=== PATIENT | female | born 1990 | race Hispanic/Latino ===

== ENCOUNTER 2016-10-23 03:38 | Emergency (ER) | payer OTHER ==
[~2016-10-23] VITALS: Ht 154.9 cm; Wt 68.0 kg
[2016-10-23] MEDS ORDERED: CLIN1CAP5 PO (03:52)
[2016-10-23] MEDS ORDERED: IBUP600T26 PO (03:52)
[2016-10-23] MEDS ORDERED: GI COCKTAIL 50ML BTL(HYOSCYAMINE/MAALOX/LIDOCAINE VISCOUS)(1:3:1) PO ONE (04:15)
[2016-10-23] MEDS ORDERED: PANTOPRAZOLE 40MG INJ (PROTONIX) (C9113) IV ONE (04:15)
[2016-10-23] MEDS ORDERED: ONDANSETRON 4MG/2ML VIAL (J2405) IV ONE (04:15)
[2016-10-23] MEDS ORDERED: NS 500 ML IV ONE (04:15)
[2016-10-23 04:46] LABS: BASO % 0.6 % (0.0-1.0); EOS # 0.2 K/mm3 (0.0-0.50); EOS % 2.5 % (0.0-3.0); LARGE UNSTAINED CELL # 0.1 K/mm3 (0.0-0.4); LARGE UNSTAINED CELL % 0.7 % (0.0-4.0); MEAN CORPUSCULAR HEMOGLOBIN 29.7 pg (27.0-33.0); MEAN CORPUSCULAR HGB CONC 33.2 g/dl (32.0-36.5); MEAN CORPUSCULAR VOLUME 89.5 fl (80.0-96.0); MONO # 0.4 K/mm3 (0.0-0.8); MONO % 4.3 % (0.0-5.0); NEUTROPHILS # 6.9 K/mm3 (1.8-7.7); NEUTROPHILS % 80.9 % (36.0-66.0); PLATELET COUNT, AUTOMATED 244 k/mm3 (150-450); RED CELL DISTRIBUTION WIDTH 12.7 % (11.5-14.5); WHITE BLOOD COUNT 8.6 K/mm3 (4.0-10.0)
[2016-10-23 05:04] LABS: CONTROL LINE HCG INT CTR LINE PRESENT
[2016-10-23 05:12] LABS: ALBUMIN 4.1 GM/DL (3.2-5.2); ALBUMIN/GLOBULIN RATIO 1.37 (1.00-1.93); ALKALINE PHOSPHATASE 52 U/L (45-117); ALT/SGPT 17 U/L (12-78); ANION GAP 10 MEQ/L (8-16); AST/SGOT 12 U/L (15-37); BILIRUBIN,DIRECT 0.2 MG/DL (0.0-0.2); BILIRUBIN,TOTAL 0.9 MG/DL (0.2-1.0); BLOOD UREA NITROGEN 8 MG/DL (7-18); CALCIUM LEVEL 8.8 MG/DL (8.5-10.1); CARBON DIOXIDE LEVEL 23 MEQ/L (21-32); CHLORIDE LEVEL 104 MEQ/L (98-107); CREATININE FOR GFR 0.86 MG/DL (0.55-1.02); GLOMERULAR FILTRATION RATE > 60.0 (>60); GLUCOSE, FASTING 104 MG/DL (70-105); POTASSIUM SERUM 3.7 MEQ/L (3.5-5.1); SODIUM LEVEL 137 MEQ/L (136-145); TOTAL PROTEIN 7.1 GM/DL (6.4-8.2)
[2016-10-23] MEDS ORDERED: FAMO40TA3 PO (05:40)
[2016-10-23 06:14] VITALS: BP 131/74
--- NOTE | 2016-10-23 16:27 | ECGEPIP ---
Stationary ECG Study [facility] - ED Test Date: 2016-10-23 Pat Name: RANDOLPH NI Department: Room: - Gender: F Vp Emerging Media: dong : 1990 Requested By: MONIQUE Humphrey Order Number: [id number] Reading MD: Ninoska Torres Measurements Intervals [place] Rate: 57 P: 34 CO: 160 QRS: 54 QRSD: 90 T: 5 QT: 391 QTc: 381 Interpretive Statements SINUS BRADYCARDIA NO PRIOR FOR COMPARISON Electronically Signed On 10-23-2016 16:27:45 EDT by Ninoska Torres
== END 2016-10-23 06:15 | disposition home or self-care (01) ==
LOC: M ED 04:43
DX: K29.70 Gastritis, unspecified, without bleeding (principal)

== ENCOUNTER → 2017-02-03 | Outpatient (REF) | payer OTHER ==
[~2017-02-03] MED LIST: CLIN150C14 PO; FAMO40TA3 PO; IBUP-1022 PO
== END ==
LOC: M LAB REF 13:03
PROVIDERS: ATTEND Specialist
DX: N87.1 Moderate cervical dysplasia (principal)